=== PATIENT | female | born 1975 | race African-American/Black ===

== ENCOUNTER 2019-05-09 07:20 | Day surgery (SDC) | payer MEDICAID ==
[~2019-05-09] VITALS: Ht 149.9 cm; Wt 82.5 kg
[2019-05-09] VITALS (10 sets, daily range): BP systolic 80–122; BP diastolic 53–74
[2019-05-09] MEDS ORDERED: normal saline 1000ml 1,000 ML IV SCH (07:40)
[2019-05-09 08:21] LABS: BASOPHILS # (AUTO) 0.1 X10'3 (0-0.2); BASOPHILS % (AUTO) 1.1 % (0-1); EOSINOPHILS # (AUTO) 0.4 X10'3 (0-0.9); EOSINOPHILS % (AUTO) 4.7 % (0-6); HEMATOCRIT 29.3 % (35.0-45.0); HEMOGLOBIN 9.6 g/dl (12.0-16.0); LYMPHOCYTES # (AUTO) 2.5 X10'3 (1.1-4.8); LYMPHOCYTES % (AUTO) 31.1 % (21-51); MEAN CORPUSCULAR HEMOGLOBIN 24.5 PG (27.0-31.0); MEAN CORPUSCULAR HGB CONC 32.8 g/dL (33.0-36.5); MEAN CORPUSCULAR VOLUME 74.8 FL (78-98); MEAN PLATELET VOLUME 10.1 FL (7.4-10.4); MONOCYTES # (AUTO) 0.7 X10'3 (0-0.9); MONOCYTES % (AUTO) 8.4 % (2-12); NEUTROPHILS # (AUTO) 4.3 X10'3 (1.8-7.7); NEUTROPHILS % (AUTO) 54.7 % (42-75); PLATELET COUNT 355 X10'3 (140-440); RED BLOOD COUNT 3.92 X10'6 (4.20-5.60); RED CELL DISTRIBUTION WIDTH 15.5 % (11.5-14.5); WHITE BLOOD COUNT 7.9 X10'3 (4.5-11.0)
[2019-05-09] MEDS ORDERED: HYDR-3686 PO (09:14)
[2019-05-09] MEDS ORDERED: [UNRECOGNIZED DRUG - OTHER] (09:14)
[2019-05-09] MEDS ORDERED: NALT50TA PO (09:14)
[2019-05-09] MEDS ORDERED: URSO250T3 PO (09:14)
[2019-05-09] MEDS ORDERED: fentaNYL/PF 50MCG/1 ML 2ML syringe IV ONE (09:30)
[2019-05-09] MEDS ORDERED: midazolam 2 mg/2 ml injection IV ONE (09:30)
[2019-05-09] MEDS ORDERED: acetaminophen 325mg tablet PO ONE (11:45)
== END 2019-05-09 12:00 | disposition home or self-care (01) ==
LOC: SSTAY O 07:20
PROVIDERS: ATTEND Radiology Vascular & Interventional Radiology
DX: B18.2 Chronic viral hepatitis C (principal); K75.4 Autoimmune hepatitis; K74.3 Primary biliary cirrhosis; E66.9 Obesity, unspecified; Z68.34 Body mass index [BMI] 34.0-34.9, adult; L29.9 Pruritus, unspecified
CPT/HCPCS: 36415; 47000; 76942; 85025; 85610; J7030